=== PATIENT | male | born 1960 | race Caucasian/White ===

== ENCOUNTER → 2021-11-18 | Day surgery (SDC) | payer SELFPAY ==
[~2021-11-18] MED LIST: ASPIRIN81 MG PO; CYCLOPENTOLATE HCL 2% OPTH SOLN 2 ML BTL OP ONE; FENTANYL CITRATE/PF 100MCG/2 ML INJ ONE; FLURBIPROFEN SODIUM OP ONE; MIDAZOLAM HCL 2 MG/2 ML VIAL ONE; MOXIFLOXACIN HCL(OPTH) 3 ML BTL ONE; MULTI-VITAMIN1 EACH PO; OR PHACO EYE KIT ONE; PHENYLEPHRINE HCL 10% 5 ML OPTH SOLN ONE; PREOP PHACO EYE KIT ONE
[2021-11-18 14:20] VITALS: BP 167/98
== END | disposition home or self-care (01) ==
LOC: OR 10:27
PROVIDERS: ATTEND Ophthalmology
DX: H25.11 Age-related nuclear cataract, right eye (principal); F41.9 Anxiety disorder, unspecified; Z79.82 Long term (current) use of aspirin
CPT/HCPCS: 66984; J2250; J3010; V2632

== ENCOUNTER → 2021-12-16 | Day surgery (SDC) | payer SELFPAY ==
[~2021-12-16] MED LIST changes: -CYCLOPENTOLATE HCL 2% OPTH SOLN 2 ML BTL OP ONE; -FENTANYL CITRATE/PF 100MCG/2 ML INJ ONE; -FLURBIPROFEN SODIUM OP ONE; -MIDAZOLAM HCL 2 MG/2 ML VIAL ONE; -MOXIFLOXACIN HCL(OPTH) 3 ML BTL ONE; -PHENYLEPHRINE HCL 10% 5 ML OPTH SOLN ONE
[2021-12-16 09:39] VITALS: BP 143/89
== END | disposition home or self-care (01) ==
LOC: OR 07:30
PROVIDERS: ATTEND Ophthalmology
DX: H25.12 Age-related nuclear cataract, left eye (principal); Z79.82 Long term (current) use of aspirin
CPT/HCPCS: V2632